=== PATIENT | male | born 1965 | race Hispanic/Latino ===

== ENCOUNTER 2018-02-13 17:01 | Emergency (ER) | payer OTHER ==
[2018-02-13 17:32] VITALS: BP 126/82; PULSE 84; RESP 20; TEMP 98.3; O2SAT 98
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
--- NOTE | 2018-02-13 18:35 | CT ---
PROCEDURE: CT HEAD WITHOUT CONTRAST. HISTORY: HEAD INJURY COMPARISON: None available. TECHNIQUE: Axial computed tomography images were obtained through the head/brain without intravenous contrast. Radiation dose: Total exam DLP = 841.12 mGy-cm. This CT exam was performed using one or more of the following dose reduction techniques: Automated exposure control, adjustment of the mA and/or kV according to patient size, and/or use of iterative reconstruction technique. FINDINGS: HEMORRHAGE: No intracranial hemorrhage. BRAIN: Duncan-white matter differentiation is preserved. There is no mass, mass effect or abnormal extra-axial fluid collection. VENTRICLES: The ventricles are normal in size, shape and configuration. CALVARIUM: There is no calvarial fracture or extracranial soft tissue swelling. PARANASAL SINUSES: Predominantly clear periods postsurgical changes in the left maxilla. MASTOID AIR CELLS: Predominantly clear. OTHER FINDINGS: None. IMPRESSION: No acute intracranial abnormality.
--- NOTE | 2018-02-13 18:45 | CT ---
PROCEDURE: CT Cervical Spine without contrast HISTORY: Neck pain COMPARISON: None available. TECHNIQUE: Axial computed tomography images were obtained of the cervical spine without the use of intravenous contrast. Coronal and sagittal reformatted images were created and reviewed. Radiation dose: Total exam DLP = 526.09 mGy-cm. This CT exam was performed using one or more of the following dose reduction techniques: Automated exposure control, adjustment of the mA and/or kV according to patient size, and/or use of iterative reconstruction technique. FINDINGS: VERTEBRAE: There is 3 mm degenerative retrolisthesis of C4 on C5. There is straightening of the cervical spine with loss of normal cervical lordosis. There is no acute fracture or traumatic anterior listhesis. The craniocervical junction is normal. The atlantoaxial joint is normal. There is diffuse bone demineralization DISCS/SPINAL CANAL/NEURAL FORAMINA: There is mild multilevel degenerative disc disease due to combination of disc osteophyte complexes, uncovertebral joint hypertrophy and multilevel facet arthropathy, worse at C4-5 with mild left neural foraminal narrowing. No spinal canal stenosis. Discs heights are grossly preserved. PARASPINAL SOFT TISSUES: The paraspinous soft tissues are normal. OTHER FINDINGS: No prevertebral soft tissue thickening. IMPRESSION: No acute fracture or traumatic anterior listhesis. Mild multilevel degenerative disc disease, worse at C4-5 with mild left neural foraminal narrowing and 3 mm degenerative retrolisthesis of C4 on C5. No spinal canal stenosis.
== END 2018-02-13 19:36 | disposition home or self-care (01) ==
LOC: H.ER 17:01
DX: S09.90XA Unspecified injury of head, initial encounter (principal); S16.1XXA Strain of muscle, fascia and tendon at neck level, initial encounter; W19.XXXA Unspecified fall, initial encounter; Y92.89 Other specified places as the place of occurrence of the external cause